=== PATIENT | male | born 1975 | race Caucasian/White ===

== ENCOUNTER 2019-05-10 12:28 | Emergency (ER) | payer OTHER ==
[2019-05-10] MEDS ORDERED: TORAdol 30 mg Injection IM ONE (13:19)
[2019-05-10] MEDS ORDERED: TORAdol 30 mg Injection ONE (13:21)
[2019-05-10 13:27] VITALS: O2SAT 96
[2019-05-10 13:48] VITALS: BP 123/70; PULSE 56
--- NOTE | 2019-05-10 13:53 | ERPHSYRPT ---
- History of Present Illness Source: patient Exam Limitations: no limitations Patient Subjective Stated Complaint: STATES HAS CHRONIC NECK AND RIGHT SHOULDER ISSUES AND FOR THE PAST THREE DAYS HAS HAD SEVERE NECK PAIN. TOOK MOTRIN THIS AM WITHOUT RELIEF Triage Nursing Assessment: AMBULATED TO ROOM PER SELF WITHOUT DIFFICULTY. UNABLE TO TURN NECK AT THIS TIME. 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 Physician History: Pt is a 43 y/o male that has a chronic shoulder and neck pain on the R. He just moved to the area, and does not have a PCP. Pt states, today the pain is worse, and he needs something for pain control. Pt denies change in sensation, but does have limited ROM on the R and has limited ROM of the neck. Timing/Duration: today Severity: moderate Modifying Factors: Improves With: medication Associated Symptoms: denies symptoms Allergies/Adverse Reactions: Penicillins Allergy (Verified 05/10/19 12:43) Home Medications: No Reportable Medications [No Reported Medications] 05/10/19 [History] Hx Tetanus, Diphtheria Vaccination/Date Given: No Hx Influenza Vaccination/Date Given: No Hx Pneumococcal Vaccination/Date Given: No - Review of Systems Constitutional: No Fever, No Chills Eyes: No Symptoms Ears, Nose, & Throat: No Symptoms Respiratory: No Cough, No Dyspnea Cardiac: No Chest Pain, No Edema, No Syncope Abdominal/Gastrointestinal: No Abdominal Pain, No Nausea, No Vomiting, No Diarrhea Musculoskeletal: Neck Pain, Joint Pain (R shoulder pain) Neurological: No Dizziness, No Focal Weakness, No Sensory Changes - Past Medical History Pertinent Past Medical History: No - Past Surgical History Past Surgical History: Yes Musculoskeletal: Orthopedic Surgery Other Surgical History: KNEE - Social History Smoking Status: Never smoker Exposure to second hand smoke: Yes Drug Use: none Patient Lives Alone: No - Nursing Vital Signs Nursing Vital Signs: Initial Vital Signs Temperature 97.7 F 05/10/19 12:42 Pulse Rate 62 05/10/19 12:42 Respiratory Rate 16 05/10/19 12:42 Blood Pressure 110/68 05/10/19 12:42 O2 Sat by Pulse Oximetry 98 05/10/19 12:42 Pain Scale Pain Intensity 10 - Physical Exam General Appearance: mild distress Eye Exam: PERRL/EOMI, eyes nml inspection Ears, Nose, Throat Exam: normal ENT inspection, TMs normal, pharynx normal, moist mucous membranes Neck Exam: limited range of motion (SCM spasms) Respiratory Exam: normal breath sounds, lungs clear, No respiratory distress Cardiovascular Exam: regular rate/rhythm, normal heart sounds, normal peripheral pulses Gastrointestinal/Abdomen Exam: soft, normal bowel sounds, No tenderness, No mass Extremity Exam: limited range of motion (of the R shoulder.) Neurologic Exam: alert, oriented x 3, cooperative, 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 The pain is chronic and non acute. No need for imaging. Toradol 60mg IM was given. 05/10/19 15:29 Ramon samy was called in the hospital, and by the time we were back in the ED, the pt left AMA. Will see patient in: office Counseled pt/family regarding: need for follow-up - Departure Departure Disposition: AMA Clinical Impression: Torticollis, unspecified Condition: Fair Critical Care Time: No Referrals: DOCTOR,NO FAMILY [Primary Care Provider] - Additional Instructions: Pt should f/u with a PCP, as he has a chronic condition, should f/u with his regular physician.
== END 2019-05-10 15:11 | disposition left against medical advice (07) ==
LOC: EDBD 12:28 → ED 12:28
DX: M43.6 Torticollis (principal); G89.29 Other chronic pain
CPT/HCPCS: 96372; 99283; J1885

== ENCOUNTER 2021-09-10 13:50 | Day surgery (SDC) | payer OTHER ==
[2021-09-10] MEDS ORDERED: Sodium Chloride 0.9% 10 ML FLUSH Syringe IJ ONE (13:51)
[2021-09-10] MEDS ORDERED: Xylocaine 1% Vial 30 ML PF IJ ONE (13:51)
[2021-09-10] MEDS ORDERED: Depo-Medrol 40 MG/ML IM ONE (13:51)
[2021-09-10] MEDS ORDERED: Decadron 4 MG INJ IV ONE (13:51)
[2021-09-10] MEDS ORDERED: DIPRIVAN 200 MG/20 ML IV ONE (16:18)
[2021-09-10] MEDS ORDERED: Lactated Ringers 1,000 ML IV ONE (16:22)
[2021-09-10] MEDS ORDERED: Lactated Ringers 2,000 ML IV ONE (16:36)
--- NOTE | 2021-09-10 19:21 | XRAY ---
Indication: Right L4-S1 transforaminal HAYES. Intraoperative fluoroscopy provided for 33 seconds. 5 digital spot images submitted for interpretation demonstrates posterior needle tips projecting over the right L4 and L5 nerve roots. Small amount of contrast injected for both needle tip placement. Correlate with intraoperative findings/report.
--- NOTE | 2021-09-10 19:21 | XRAY ---
Indication: Right piriformis muscle injection. Intraoperative fluoroscopy provided for 10 seconds. Single digital spot image submitted for interpretation demonstrates posterior needle tip projecting over the expected right piriformis muscle. Small amount of contrast injected for needle tip placement. Correlate with intraoperative findings/report.
--- NOTE | 2021-09-11 11:53 | XRAY ---
10 seconds fluoroscopy time in surgery for injection of the right pirifomis muscle.
--- NOTE | 2021-09-11 11:53 | XRAY ---
33 seconds fluoroscopy time in surgery for right L4-S1 transforaminal HAYES.
== END 2021-09-10 16:55 | disposition home or self-care (01) ==
LOC: SDC-PAIN 13:50
PROVIDERS: ATTEND Psychiatry & Neurology Pain Medicine
DX: M54.16 Radiculopathy, lumbar region (principal); M79.18 Myalgia, other site; Z79.891 Long term (current) use of opiate analgesic
CPT/HCPCS: 20552; 64483; 64484; 72020; 72100; 76942; 77002; 77003; J1030; J1100; J2001; J2704; Q9966